=== PATIENT | female | born 1990 ===

== ENCOUNTER 2021-05-19 17:12 | Inpatient (IN) | payer MEDICAID ==
[2021-05-19] MEDS ORDERED: LIDOCAINE (2%) 20 MG/1 ML VIAL 20 ML MDV INFILTRATI ONE (18:17)
[2021-05-19] MEDS ORDERED: miSOPROStol 200 MCG TAB PR PRN (18:17)
[2021-05-19] MEDS ORDERED: MINERAL OIL 30 ML ORAL LIQD PO PRN (18:17)
[2021-05-19] MEDS ORDERED: METHYLERGONOVINE MALEATE 0.2 MG/ML VIAL IM PRN (18:17)
[2021-05-19] MEDS ORDERED: TERBUTALINE 1 MG/1 ML INJ SUB-Q PRN (18:17)
[2021-05-19] MEDS ORDERED: ePHEDrine SULFATE 50 MG/1 ML INJ IV PRN (18:17)
[2021-05-19] MEDS ORDERED: LOPERAMIDE 2 MG CAP PO PRN (18:17)
[2021-05-19] MEDS ORDERED: CARBOPROST TROMETHAMINE 250 MCG/1 ML INJ IM PRN (18:17)
[2021-05-19] MEDS ORDERED: OXYTOCIN 10 UNIT/1 ML INJ IM PRN (18:17)
[2021-05-19] MEDS ORDERED: OXYTOCIN DRIP 30 UNITS/500 ML BAG IV SCH (19:00)
[2021-05-19] MEDS ORDERED: AMPICILLIN/NS 2 GM/100 ML 2 GM/100 ML BAG IV ONE (19:00)
[2021-05-19] MEDS: LACTATED RINGERS 1,000 ML IV SCH (19:19)
[2021-05-19] MEDS ORDERED: BUTORPHANOL 2 MG/1 ML INJ IV PRN (19:59)
[2021-05-19] MEDS: OXYTOCIN DRIP 30 UNITS/500 ML BAG IV SCH (22:01)
[2021-05-19 22:24] LABS: Hematocrit 40.7 % (30.3-42.9); Hemoglobin 13.7 gm/dl (10.1-14.3); Mean Corpuscular HGB Conc 34 % (30-34); Mean Corpuscular Volume 89 fl (79-97); Platelet Count 178 K/mm3 (140-440); Red Blood Count 4.59 M/mm3 (3.65-5.03); Red Cell Distribution Width 17.5 % (13.2-15.2)
[2021-05-19] MEDS: AMPICILLIN/NS 1 GM/50 ML 1 GM/50 ML BAG IV SCH (23:11)
[2021-05-20] MEDS: AMPICILLIN/NS 1 GM/50 ML 1 GM/50 ML BAG IV SCH ×3 (03:14→10:58)
[2021-05-20] MEDS: LACTATED RINGERS 1,000 ML IV SCH ×2 (03:14→09:17)
[2021-05-20] MEDS: OXYTOCIN DRIP 30 UNITS/500 ML BAG IV SCH (10:11)
[2021-05-20] MEDS ORDERED: NALOXONE 2 MG/2 ML INJ IV PRN (10:11)
[2021-05-20] MEDS ORDERED: ePHEDrine SULFATE 50 MG/1 ML INJ IV PRN ×2 (10:11→11:51)
--- NOTE | 2021-05-20 10:12 | Anesthesia Consultation ---
Anesthesia Consult and Med Hx Date of service: 05/20/21 - Airway Anesthetic Teeth Evaluation: Good ROM Head & Neck: Adequate Mental/Hyoid Distance: Adequate Mallampati Class: Class II Intubation Access Assessment: Probably Good - Pulmonary Exam CTA: Yes - Cardiac Exam Cardiac Exam: RRR - Pre-Operative Health Status ASA Pre-Surgery Classification: ASA2 Proposed Anesthetic Plan: Epidural - Pulmonary Hx Asthma: No COPD: No Hx Pneumonia: No - Cardiovascular System Hx Hypertension: No - Central Nervous System Hx Seizures: No Hx Psychiatric Problems: No - Endocrine Hx Renal Disease: No Hx End Stage Renal Disease: No Hx Hypothyroidism: No Hx Hyperthyroidism: No - Hematic Hx Anemia: No Hx Sickle Cell Disease: No - Other Systems Hx Alcohol Use: No
--- NOTE | 2021-05-20 10:42 | Progress Note ---
Labor Epidural - Labor Epidural Start Time: 10:22 Stop Time: 10:36 Performed by:: DUKE TORRES Procedure: Patient is requesting epidural for labor pain. H&P, and labs reviewed. Procedure explained, questions answered, consent obtained. Patient in sitting position with blood pressure cuff and pulse ox on and working. Timeout performed immediately before start of procedure. Sterile chlorahexadine 0.5% prep/drape. 3 mL 1% lidocaine skin wheal at L[3]-L[4]. 18-gauge JourneyPure epidural needle advanced to [id number] with saline at [7] cm. Epidural catheter advanced to [12] cm, negative aspiration for blood and csf, negative test dose 3 ml 1.5% lidocaine with epinephrine. Epidural dexmedetomidine [30] mcg administered. Catheter displaced while removing drape Reinserted at same level in exact same fasion, test dose repeated and negative. Sterile steri-strips and tegaderm applied, followed by tape reinforcement. Patient tolerated procedure well. Thea SRNA
[2021-05-20] MEDS ORDERED: fentaNYL-BUPIV 2 MCG/ML-0.125% 200 MCG/100 ML BAG EPIDURAL SCH (11:00)
--- NOTE | 2021-05-20 11:49 | History and Physical Report ---
History of Present Illness Date of examination: 05/20/21 Date of admission: 05/19/21 17:13 Chief complaint: My water broke History of present illness: Patient is a 31-year-old 4 para 3 with a EDC of 05/27/2021 who presents with contractions and spontaneous rupture of membranes. She was found to be 3 cm dilated upon admission. Patient receives care with [facility], however records are not available for review. Past History Past Medical History: no pertinent history Past Surgical History: no surgical history Social history: - Obstetrical History Expected Date of Delivery: 05/27/21 Actual Gestation: 39 Week(s) 0 Day(s) : 4 Number of Living Children: 3 Medications and Allergies Allergies Allergy/AdvReac Type Severity Reaction Status Date / Time No Known Allergies Allergy Verified 05/19/21 17:46 Home Medications Medication Instructions Recorded Confirmed Last Taken Type No Known Home Medications [No 05/20/21 05/20/21 Unknown History Reported Home Medications] Active Meds: Active Medications Butorphanol Tartrate (Butorphanol 2 Mg/1 Ml Inj) 2 mg IV Q2H PRN PRN Reason: Labor Pain Last Admin: 05/20/21 06:01 Dose: 2 mg Documented by: Carboprost Tromethamine (Carboprost Tromethamine 250 Mcg/1 Ml Inj) 250 mcg IM ONCE PRN PRN Reason: Uterine Bleeding Ephedrine Sulfate (Ephedrine Sulfate 50 Mg/1 Ml Inj) 10 mg IV Q2M PRN PRN Reason: Hypotension Oxytocin/Sodium Chloride (Pitocin/Ns 30 Unit/500ml) 30 units in 500 mls @ 2 mls/hr IV TITR ROCKY; Protocol Last Admin: 05/20/21 10:11 Dose: 6 mls/hr, 6 mls/hr Documented by: Lactated Ringer's (Lactated Ringers) 1,000 mls @ 125 mls/hr IV DIRECT ROCKY Last Admin: 05/20/21 09:17 Dose: 125 mls/hr Documented by: Oxytocin/Sodium Chloride (Pitocin/Ns 30 Unit/500ml) 30 units in 500 mls @ 40 mls/hr IV TITR ROCKY; Protocol Ampicillin Sodium (Ampicillin/Ns 1 Gm/50 Ml) 1 gm in 50 mls @ 100 mls/hr IV Q4H ROCKY; Protocol Last Admin: 05/20/21 10:58 Dose: 100 mls/hr Documented by: Fentanyl/Bupivacaine/Sodium Chlor (Fentanyl-Bupiv 2 Mcg/Ml-0.125%) 200 mcg in 100 mls @ 12 mls/hr EPIDURAL TITR ROCKY; Protocol Last Admin: 05/20/21 10:49 Dose: 12 mls/hr Documented by: Loperamide HCl (Loperamide 2 Mg Cap) 2 mg PO ONCE PRN PRN Reason: give with Hemabate Methylergonovine Maleate (Methylergonovine Maleate 0.2 Mg/Ml Vial) 0.2 mg IM ONCE PRN PRN Reason: Uterine Bleeding Mineral Oil (Mineral Oil 30 Ml Oral Liqd) 30 ml PO QHS PRN PRN Reason: Constipation Misoprostol (Misoprostol 200 Mcg Tab) 800 mcg MS ONCE PRN PRN Reason: Uterine Bleeding Naloxone HCl (Naloxone 2 Mg/2 Ml Inj) 0.2 mg IV Q5M PRN PRN Reason: Respiratory sedation Oxytocin (Oxytocin 10 Unit/1 Ml Inj) 10 unit IM ONCE PRN PRN Reason: Uterine Bleeding Terbutaline Sulfate (Terbutaline 1 Mg/1 Ml Inj) 0.25 mg SUB-Q ONCE PRN PRN Reason: Hyperstimulation/Hypertonicity Review of Systems All systems: negative Constitutional: fatigue Genitourinary: leakage of fluid, contractions - Vital Signs Vital signs: Vital Signs Pulse Ox 98 05/19/21 17:52 Temp Pulse Resp BP Pulse Ox 97.8 F 100 H 17 108/58 98 05/20/21 10:19 05/20/21 11:35 05/20/21 08:23 05/20/21 11:35 05/20/21 11:26 - Physical Exam Breasts: Positive: deferred Cardiovascular: Regular rate, Normal S1, Normal S2 Lungs: Positive: Clear to auscultation, Normal air movement Abdomen: Positive: normal appearance, soft, normal bowel sounds. Negative: distention, tenderness Genitourinary (Female): Positive: normal external genitalia, normal perenium Vulva: both: normal Vagina: Positive: normal moisture. Negative: discharge Cervix: Negative: lesion, discharge Uterus: Positive: normal size, normal contour Adnexa: both: normal Anus/Rectum: Positive: normal perianal skin, heme negative. Negative: rectal mass, hemorrhoids Extremities: Deep Tendon Reflex Grade: Normal +2 - Obstetrical Cervical Dilatation: 3 Cervical Effacement Percentage: 50 station: -2 Uterine Contraction Pattern: Irregular Uterine Tone Measurement Phase: Contraction Uterine Contraction Intensity: Moderate Results Result Diagrams: 05/19/21 18:30 Abnormal lab results 05/19/21 Range/Units 18:30 RDW 17.5 H (13.2-15.2) % All other labs normal. Assessment and Plan IUP at 38-6/7 weeks and active labor spontaneous rupture of membranes. Will admit for labor. Will treat for GBS unknown status. Anticipate .
[2021-05-20] MEDS ORDERED: ACETAMINOPHEN 325 MG TAB PO PRN (11:51)
[2021-05-20] MEDS ORDERED: OXYTOCIN 10 UNIT/1 ML INJ IM PRN (11:51)
[2021-05-20] MEDS ORDERED: TERBUTALINE 1 MG/1 ML INJ SUB-Q PRN (11:51)
[2021-05-20] MEDS ORDERED: MINERAL OIL 30 ML ORAL LIQD PO PRN (11:51)
[2021-05-20] MEDS ORDERED: LOPERAMIDE 2 MG CAP PO PRN (11:51)
[2021-05-20] MEDS ORDERED: CARBOPROST TROMETHAMINE 250 MCG/1 ML INJ IM PRN (11:51)
--- NOTE | 2021-05-20 11:51 | Procedure Note ---
OB Delivery Note - Delivery Date of Delivery: 05/20/21 Surgeon: XAVI FARAH Estimated blood loss: 200cc - Vaginal Delivery presentation: vertex Delivery position: OA Intrapartum events: PROM->1hr before delivery Delivery augmentation: pitocin Delivery monitor: external FHT, external uterine Route of delivery: Delivery placenta: spontaneous Delivery cord: 3 umbilical vessels Episiotomy: none Delivery laceration: none Anesthesia: epidural Delivery comments: Viable male delivered over intact perineum without nuchal cord and had spontaneous cry. was placed on maternal abdomen. Weight 6 pounds 13 ounces. Apgars 8 and 9. Placenta delivered spontaneously and intact with three-vessel cord. No lacerations. Excellent hemostasis. Patient tolerated procedure well.
[2021-05-20] MEDS ORDERED: LACTATED RINGERS 1,000 ML IV SCH (12:00)
[2021-05-20] MEDS ORDERED: IBUPROFEN 600 MG TAB PO SCH (17:00)
[2021-05-20] MEDS ORDERED: IBUPROFEN 600 MG TAB PO PRN (17:00)
[2021-05-20] MEDS ORDERED: WITCH HAZEL/ GLYCERIN PAD TP PRN (18:31)
[2021-05-20] MEDS ORDERED: ONDANSETRON 4 MG/2 ML INJ IV PRN (18:31)
[2021-05-20] MEDS ORDERED: PROMETHAZINE 25 MG TAB PO PRN (18:31)
[2021-05-20] MEDS ORDERED: MAGNESIUM HYDROXIDE (MOM) ORAL LIQD UDC PO PRN (18:31)
[2021-05-20] MEDS ORDERED: diphenhydrAMINE 25 MG CAP PO PRN (18:31)
[2021-05-20] MEDS ORDERED: HYDROcodone/ACETAMINOPHEN 5-325 MG TAB PO PRN (18:31)
[2021-05-20] MEDS ORDERED: LANOLIN/ZINC/DIMETHICONE (LANSINOH) 7 GM TP PRN (18:31)
[2021-05-20] MEDS ORDERED: PROMETHAZINE 25 MG RECT SUPP PR PRN (18:31)
[2021-05-20] MEDS ORDERED: SENNOSIDES/DOCUSATE SODIUM 8.6/50 MG TAB PO SCH (19:00)
[2021-05-20] MEDS: DOCUSATE SODIUM 100 MG CAP PO SCH (22:05)
[2021-05-20] MEDS: IBUPROFEN 600 MG TAB PO SCH (23:45)
[2021-05-21 05:55] LABS: Hematocrit 40.1 % (30.3-42.9); Hemoglobin 13.5 gm/dl (10.1-14.3)
[2021-05-21] MEDS: IBUPROFEN 600 MG TAB PO SCH (05:56)
--- NOTE | 2021-05-21 08:16 | Progress Note ---
Assessment and Plan A: PPD# 1 s/p at term P: Routine care Discharge this afternoon per pt request Subjective - Subjective Date of service: 05/21/21 Principal diagnosis: s/p at term Interval history: Pt without complaints. She desires to go home this afternoon if possible. Patient reports: appetite normal, voiding normally, pain well controlled, ambulating normally [place]: doing well Objective - Vital Signs Latest vital signs: Vital Signs Temp Pulse Resp BP BP Pulse Ox Pulse Ox 05/21/21 07:25 98 05/21/21 05:56 20 05/21/21 00:55 98.2 F 95 H 16 103/62 100 05/20/21 23:45 20 05/20/21 21:20 98.2 F 90 18 109/66 97 05/20/21 19:55 99 05/20/21 16:25 98.7 F 85 18 108/71 99 05/20/21 14:30 98.1 F 70 16 113/76 100 100 05/20/21 14:05 75 108/67 05/20/21 13:51 66 101/63 05/20/21 13:35 75 109/64 05/20/21 13:20 82 108/62 05/20/21 13:06 76 107/55 05/20/21 12:52 83 121/58 05/20/21 12:21 94 H 109/57 05/20/21 12:06 88 92/51 05/20/21 11:51 88 93/51 05/20/21 11:35 100 H 108/58 05/20/21 11:26 95 H 98 05/20/21 11:21 107 H 112/56 97 05/20/21 11:16 123 H 98 05/20/21 11:11 113 H 99 05/20/21 11:06 109 H 124/74 100 05/20/21 11:01 113 H 97 05/20/21 10:56 95 H 98 05/20/21 10:51 92 H 99 05/20/21 10:50 93 H 94/54 05/20/21 10:48 97 H 111/68 05/20/21 10:46 107 H 104/64 97 05/20/21 10:44 101 H 119/70 05/20/21 10:42 106 H 122/71 05/20/21 10:41 98 H 97 05/20/21 10:40 99 H 106/55 05/20/21 10:38 111 H 121/62 05/20/21 10:36 119 H 121/71 97 05/20/21 10:32 111 H 122/79 05/20/21 10:31 109 H 98 05/20/21 10:30 113 H 114/74 05/20/21 10:26 107 H 96 05/20/21 10:21 114 H 149/94 98 05/20/21 10:19 97.8 F 05/20/21 10:16 113 H 161/94 99 05/20/21 10:11 109 H 98 05/20/21 10:06 120 H 99 05/20/21 10:01 121 H 98 05/20/21 09:56 114 H 98 05/20/21 09:51 113 H 96 05/20/21 09:46 101 H 97 05/20/21 09:41 115 H 97 05/20/21 09:36 101 H 96 05/20/21 09:31 114 H 97 05/20/21 09:26 102 H 97 05/20/21 09:21 107 H 96 05/20/21 09:16 103 H 98 05/20/21 09:05 100 H 97 05/20/21 09:00 104 H 97 05/20/21 08:55 104 H 97 05/20/21 08:50 106 H 97 05/20/21 08:45 103 H 98 05/20/21 08:40 107 H 97 05/20/21 08:35 101 H 98 05/20/21 08:30 111 H 98 05/20/21 08:25 125 H 98 05/20/21 08:23 98.3 F 108 H 17 117/72 97 05/20/21 08:22 122 H 118/72 05/20/21 08:20 114 H 97 Intake and Output 05/20/21 05/21/21 05/21/21 22:59 06:59 14:59 Intake Total 600 360 Output Total 1700 Balance -1100 360 Intake: Oral 240 Intake, Free Water 360 360 Output: Urine 1700 Void 1700 Other: Total, Intake Amount 240 Total, Output Amount 500 # Voids Void 1 1 # Bowel Movements 1 - Exam Breasts: Present: deferred Abdomen: Present: soft Uterus: Present: fundal height at umbilicus Extremities: Present: normal
--- NOTE | 2021-05-21 08:18 | Discharge Summary ---
Providers - Providers Date of Admission: 05/19/21 17:13 Date of discharge: 05/21/21 Attending physician: SEEMA SIU Primary care physician: SEEMA SIU Hospitalization Reason for admission: rupture of membranes Delivery: Procedure details: Please see delivery note Episiotomy: none Laceration: none Other procedures: none complications: none Discharge diagnosis: IUP at term delivered baby: male Hospital course: Patient was admitted with rupture of membranes and went on to have a spontaneous vaginal delivery which she tolerated well. Her course was uncomplicated. She met discharge criteria on day #1 and will follow- up in the office in 4 weeks. Condition at discharge: Stable Disposition: DC-01 TO HOME OR SELFCARE - Discharge Diagnoses (1) Term of male Status: Acute (2) Spontaneous vaginal delivery Status: Acute (3) Rupture of membranes with clear amniotic fluid Status: Acute Plan - Discharge Medications Prescriptions: Ibuprofen [Motrin] 800 mg PO Q8HR PRN #30 tablet PRN Reason: Pain, Moderate (4-6) - Provider Discharge Summary Activity: routine, no sex for 6 weeks, no strenuous exercise Diet: routine Instructions: routine Additional instructions: [] Smoking cessation referral if applicable(refer to patient education folder for contact #) [] Refer to [facility]'s [facility] Booklet Call your doctor immediately for: * Fever > 100.5 * Heavy vaginal bleeding ( >1 pad per hour) * Severe persistent headache * Shortness of breath * Reddened, hot, painful area to leg or breast * Drainage or odor from incision. * Keep incision clean and dry at all times and follow doctor's instructions regarding bathing/showering - Follow up plan Follow up: SUSSY ADLER, H[facility] S[employer]ER [Advanced Practice Nurse] - 06/20/21 (Please call to schedule appt )
[2021-05-21] MEDS ORDERED: IBUPROFEN 600 MG TAB PO PRN (08:20)
[2021-05-21] MEDS ORDERED: IBUPROFEN 800 MG TAB PO PRN (08:30)
[2021-05-21] MEDS: DOCUSATE SODIUM 100 MG CAP PO SCH (09:06)
[2021-05-21] MEDS ORDERED: PRENATAL VIT27-FE FUMARATE-FOLIC ACID VIT TAB PO SCH (10:00)
[2021-05-21 14:55] VITALS: BP 105/78
--- NOTE | 2021-05-21 15:07 | Post Anesthesia Evaluation ---
- Post Anesthesia Evaluation Patient Participated: Yes Airway Patent: Yes Stable Respiratory Function: Yes Nausea/Vomiting: No Temp > 96.8F: Yes Pain Manageable: Yes Adequeate Hydration: Yes Anesthesia Complications: No Block Receding Appropriately: Yes
== END 2021-05-21 15:05 | disposition home or self-care (01) | DRG 775 ==
LOC: TRG 17:12 → LD 17:13 → OBSVTOIN 17:13 → APU 17:17 → TRG 17:19 → LD 18:07 → OB 05-20 14:37
PROVIDERS: ADMIT Obstetrics & Gynecology; ATTEND Obstetrics & Gynecology
PROC: 10E0XZZ Delivery of Products of Conception, External Approach (ICD-10-PCS; principal; 2021-05-20)
PROC: 3E0R3BZ Introduction of Anesthetic Agent into Spinal Canal, Percutaneous Approach (ICD-10-PCS; 2021-05-20)
PROC: 00HU33Z Insertion of Infusion Device into Spinal Canal, Percutaneous Approach (ICD-10-PCS; 2021-05-20)
DX: O42.02 Full-term premature rupture of membranes, onset of labor within 24 hours of rupture (principal); Z37.0 Single live birth; Z20.822 Contact with and (suspected) exposure to COVID-19; Z3A.39 39 weeks gestation of pregnancy
CPT/HCPCS: 36415; 59025; 85014; 85018; 85027; 86592; 86706; 86850; 86900; 86901; 87806; G0378; J0290; J0595; J2590; J7120; U0003